=== PATIENT | female | born 2000 | race Caucasian/White ===

== ENCOUNTER 2023-10-06 16:03 | Outpatient (CLI) | payer BC ==
[2023-10-06 16:45] LABS: Hematocrit 34.3 % (34.9-44.5)
[2023-10-06 17:05] LABS: BHCG - Serum Negative (NEGATIVE); Pregs Control Background? CLEAR/WHITE (CLR/WHITE); Pregs Control Bar Appear? YES (CONTROL BAR)
== END 2023-10-06 16:04 | disposition home or self-care (01) ==
LOC: LABBT 16:03
PROVIDERS: ATTEND Specialist
DX: Z01.812 Encounter for preprocedural laboratory examination (principal); J35.01 Chronic tonsillitis
CPT/HCPCS: 84703; 85014

== ENCOUNTER 2023-10-09 08:11 | Day surgery (SDC) | payer BC ==
[2023-10-06 16:35] VITALS: BMI 27.4
[2023-10-09] MEDS ORDERED: Ferric Subsulfate 8 ML TOPICAL SOLN ONE (11:13)
[2023-10-09] MEDS ORDERED: Dexamethasone 20 MG/5 ML VIAL ONE (11:24)
[2023-10-09] MEDS ORDERED: Ondansetron PF 4 MG/2 ML Vial ONE (11:24)
[2023-10-09] MEDS ORDERED: PROPOFOL 200 MG/20 ML VIAL ONE (11:24)
[2023-10-09] MEDS ORDERED: Ketorolac Tromethamine 30 MG/ML VIAL ONE (11:24)
[2023-10-09] MEDS ORDERED: Lidocaine 1% PF 5 ML VIAL ONE (11:24)
[2023-10-09] MEDS ORDERED: Metoclopramide HCl 10 MG/2 ML VIAL ONE (11:24)
[2023-10-09] MEDS ORDERED: fentaNYL 50 mcg/mL 1 mL Vial ONE (13:08)
[2023-10-09] MEDS ORDERED: Hydrocodone-Acetamin 15 ML UDCUP ONE (13:26)
== END 2023-10-09 13:55 | disposition home or self-care (01) ==
LOC: SDC 08:11
PROVIDERS: ATTEND Specialist
PROC: 0CBPXZZ Excision of Tonsils, External Approach (ICD-10-PCS; principal; 2023-10-09)
DX: J35.01 Chronic tonsillitis (principal); Z79.899 Other long term (current) drug therapy
CPT/HCPCS: 88304; J1100; J1885; J2405; J2704; J2765; J3010